=== PATIENT | female | born 1960 | race Caucasian/White ===

== ENCOUNTER 2024-01-05 07:12 | Day surgery (SDC) | payer OTHER ==
[~2024-01-05] VITALS: Ht 152.4 cm; Wt 72.6 kg
[2024-01-05] MEDS ORDERED: MIDAZOLAM HCL 5 MG/5 ML VIAL ONE (07:50)
[2024-01-05] MEDS ORDERED: MEPERIDINE 100 MG INJ. 100 MG/ML VIAL ONE (07:50)
[2024-01-05 08:40] VITALS: O2SAT 99
[2024-01-05 14:11] VITALS: BP_SYST 120; PULSE 72; RESP 16
== END 2024-01-05 10:48 | disposition home or self-care (01) ==
LOC: SDS 07:12 → SMU 07:14 → SDS 10:48
PROVIDERS: ATTEND Internal Medicine Gastroenterology
DX: K59.00 Constipation, unspecified (principal); K29.50 Unspecified chronic gastritis without bleeding; K63.5 Polyp of colon; K21.9 Gastro-esophageal reflux disease without esophagitis; R14.0 Abdominal distension (gaseous); K57.30 Diverticulosis of large intestine without perforation or abscess without bleeding; K64.8 Other hemorrhoids; E78.5 Hyperlipidemia, unspecified; G47.30 Sleep apnea, unspecified; K44.9 Diaphragmatic hernia without obstruction or gangrene; J45.909 Unspecified asthma, uncomplicated; E03.9 Hypothyroidism, unspecified; Z86.010 Personal history of colon polyps; Z79.899 Other long term (current) drug therapy
CPT/HCPCS: 45380; 43239; 99152; 87081; 36415; 88305; 88312; 88313; 99153; G0378; J2250; J2175